=== PATIENT | male | born 1980 | race Caucasian/White ===

== ENCOUNTER 2019-01-08 13:39 | Inpatient (IN) | payer OTHER ==
[~2019-01-08] VITALS: Ht 188 cm; Wt 72.6 kg
[~2019-01-08 13:39] MED LIST: AZIT500 PO; CEPH500 PO; CLIN150; CLIN300; CLIN300 PO; FEXPSEER; FLUV50; HYDACE10B PO; HYDACE5; HYDACE5 PO; HYDACE7.5; MEDICAL MARIJUANA; MOXI400; OLAN10 PO; OXYACE5T PO; OXYACE7.5T PO; PROM25 PO; RXHYDACE PO; RXOXYACE PO; TRAZ150T57; TRAZ50; VITAMENS; [UNRECOGNIZED DRUG - OTHER]
[2019-01-08 14:49] LABS: BASOPHILS ABSOLUTE AUTO 0.06 K/mm3 (0.00-0.23); BASOPHILS PERCENT AUTO 1 % (0-2); EOSINOPHILS ABSOLUTE AUTO 0.05 K/mm3 (0.00-0.68); EOSINOPHILS PERCENT AUTO 1 % (0-6); Hematocrit 42.3 % (37.0-53.0); Hemoglobin 14.9 g/dL (13.5-17.5); IMMATURE GRAN ABSOLUTE AUTO 0.03 K/mm3 (0.00-0.10); IMMATURE GRAN PERCENT AUTO 0 % (0-1); LYMPHOCYTES ABSOLUTE AUTO 2.46 K/mm3 (0.84-5.20); LYMPHOCYTES PERCENT AUTO 27 % (21-46); MONOCYTES ABSOLUTE AUTO 1.04 K/mm3 (0.16-1.47); MONOCYTES PERCENT AUTO 11 % (4-13); Mean Corpuscular HGB 36.1 pg (26.0-34.0); Mean Corpuscular HGB Conc 35.2 g/dL (31.5-36.5); Mean Corpuscular Volume 102 fL (80-100); Mean Platelet Volume 9.2 fL (9.1-12.4); NEUTROPHILS ABSOLUTE AUTO 5.46 K/mm3 (1.96-9.15); NEUTROPHILS PERCENT AUTO 60 % (41-73); Platelet Count 302 K/mm3 (150-400); RDW Coefficient Variation 13.1 % (11.7-14.2); RDW Standard Deviation 49.4 fL (35.1-46.3); Red Blood Cell Count 4.13 M/mm3 (4.30-5.90)
[2019-01-08 15:22] LABS: Alanine Aminotransfer (ALT/SGP 18 U/L (12-78); Alk Phos 86 U/L (50-136); Anion Gap 8 mmol/L (6-16); Aspartate Aminotrans (AST/SGOT 14 U/L (12-37); Bilirubin, Total 0.5 mg/dL (0.1-1.0); Blood Urea Nitrogen 6 mg/dL (8-24); Bun/Creatinine Ratio 7.5 (12.0-20.0); CO2, Blood 26 mmol/L (21-32); Calcium, Blood 8.9 mg/dL (8.5-10.1); Chloride, Blood 106 mmol/L (98-108); Globulin, Blood 4.1 g/dL (2.2-4.0); Glomerular Filtration Rate >60 (60-); Glucose, Blood 120 mg/dL (70-99); Potassium, Blood 3.5 mmol/L (3.5-5.5); Sodium, Blood 140 mmol/L (136-145); Total Protein, Blood 8.1 g/dL (6.4-8.2)
[2019-01-08] MEDS ORDERED: Trazodone HCl300 MG PO (16:09)
[2019-01-08] MEDS ORDERED: OLAN10 PO ×2 (16:09→16:10)
[2019-01-08] MEDS ORDERED: OLAN20 MM (16:09)
[2019-01-08] MEDS ORDERED: Norco 10-325 T1 EACH PO (16:10)
[2019-01-08] MEDS ORDERED: Fluvoxamine Ma100 MG PO (16:10)
[2019-01-10] MEDS ORDERED: CLIN300 PO (10:59)
== END 2019-01-10 11:10 | disposition home or self-care (01) | DRG 603 ==
LOC: ER 13:39 → MEDS 13:40 → ENPENDDIS 01-10 10:37 → MEDS 01-10 11:10
PROVIDERS: Physician Assistant; ADMIT Internal Medicine
DX: L03.213 Periorbital cellulitis (principal); F42.9 Obsessive-compulsive disorder, unspecified; Z88.1 Allergy status to other antibiotic agents; Z88.0 Allergy status to penicillin; Z88.8 Allergy status to other drugs, medicaments and biological substances
CPT/HCPCS: 36415; 70481; 80053; 85025; 96365; 96366; 96367; 96372; 96375; 96376; 99284-25; A9270; G0378; J1650; J2405; J2765; J3370; J7050; Q9967